=== PATIENT | female | born 1955 | race Asian ===

== ENCOUNTER 2017-06-26 08:43 | Day surgery (SDC) | payer OTHER ==
[~2017-06-26] VITALS: Ht 160 cm; Wt 59.5 kg
[2017-06-26] MEDS ORDERED: METOPROLOL (09:31)
[2017-06-26] MEDS ORDERED: LOSARTAN (09:31)
[2017-06-26 09:32] VITALS: Ht 160 cm; Wt 59.5 kg
--- NOTE | 2017-06-26 11:50 | OPPN ---
Date/Time of Note Date/Time of Note DATE: 06/26/17 TIME: 11:46 Proc Note GI Procedure date: Jun 26, 2017 Pre-procedure Diagnosis Screening colonoscopy Post-procedure Diagnosis Minimal internal hemorrhoids minimal external hemorrhoids Operation Performed colonoscopy Surgeon: BRENDON WELLS MD Anesthesia Type: moderate sedation Estimated blood loss: none Transfusion Required: no Specimen: none Grafts/Implants: none Complications: no Pt Condition post procedure: stable Indications Rule out colon polyps Operative\Procedure Findings Colonoscopy Informed written consent is obtained patient was ostial in the left lateral side 3 mg Versed 50 mcg of fentanyl was given as intravenous anesthesia The patient become somnolent Olympus video colonoscope was introduced into the rectum and advanced all the way to the cecum. Entire colon appeared normal with no evidence of neoplasm diverticulosis or any other abnormality None revealed minimal internal hemorrhoids minimal external hemorrhoids were noted and the procedure was terminated ccDR BRENDON Vicente DR, MD Jun 26, 2017 11:50
[2017-06-26 12:12] VITALS: BP 99/57; PULSE 54; RESP 24
[2017-06-26] MEDS ORDERED: FENTAnyl 50 MCG/ML VIAL ONE (15:11)
[2017-06-26] MEDS ORDERED: MIDAZOLAM 1 MG/ML 2 ML INJ ONE ×2 (15:12)
== END 2017-06-26 15:01 | disposition home or self-care (01) ==
LOC: GIL 08:43
PROVIDERS: ATTEND Internal Medicine Gastroenterology
DX: Z12.11 Encounter for screening for malignant neoplasm of colon (principal); K64.8 Other hemorrhoids; K64.4 Residual hemorrhoidal skin tags
CPT/HCPCS: 45378; J2250; J3010; Z7610